=== PATIENT | male | born 2000 | race Hispanic/Latino ===

== ENCOUNTER 2022-05-27 23:19 | Inpatient (IN) | payer OTHER, SELFPAY ==
[~2022-05-27 23:19] MED LIST: Iopamidol-370 76% 500 ML 1 ML ONE
[2022-05-27] MEDS ORDERED: Morphine 4 MG/ML VIAL ONE (23:32)
[2022-05-27] MEDS ORDERED: Ondansetron PF 4 MG/2 ML Vial ONE (23:32)
[2022-05-27 23:34] LABS: #Lymphocytes 3.4 thou/uL (1.20-3.40); #Monocytes 0.7 thou/uL (0.11-0.59); #Neutrophils 10.5 thou/uL (1.40-6.50); %Basophils 0.3 % (0.0-1.0); %Eosinophils 0.3 % (0.0-10.0); %Lymphocytes 23.4 % (21.0-51.0); %Monocytes 4.6 % (0.0-10.0); %Neutrophils 71.3 % (42.0-75.0); Mean Corpuscular Hemoglobin 29.9 pg (27.0-31.0); Mean Corpuscular Volume 87.8 fl (78.0-98.0); Mean Platelet Volume 8.3 fL (7.4-10.4); Platelet Count 265 10x3/uL (130-400); RBC Distribution Width 11.4 % (11.5-14.5); Red Blood Cell (RBC) Count 5.36 mill/uL (4.70-6.10); White Blood Cell (WBC) Count 14.7 10x3/uL (4.8-10.8)
[2022-05-27 23:48] LABS: INR-International Normal Ratio 1.1; PTT 24.8 sec (22.9-36.1); Prothrombin Time 14.4 sec (12.0-14.7)
[2022-05-27 23:50] LABS: ALT (SGPT) 220 U/L (8-55); AST (SGOT) 285 U/L (5-34); Albumin 4.8 g/dL (3.5-5.0); Alkaline Phosphatase 57 U/L (40-110); Anion Gap 17 mmol/L (10-20); BUN (Urea Nitrogen) 13 mg/dL (8.9-20.6); Calc. Creatinine Clearance 0 mL/min (70-130); Calcium 9.3 mg/dL (7.8-10.44); Carbon Dioxide 21 mmol/L (22-29); Chloride 103 mmol/L (98-107); Estimated GFR 101; Globulin 2.6 g/dL (2.4-3.5); Glucose 194 mg/dL (70-105); Lipase 38 U/L (8-78); Potassium 3.2 mmol/L (3.5-5.1); Protein, Total 7.4 g/dL (6.0-8.3); Sodium 138 mmol/L (136-145)
[2022-05-27] MEDS ORDERED: Lidocaine 1% w/Epinephrine 1:100K 20 ML VIAL ONE (23:58)
[2022-05-27] MEDS ORDERED: Tranexamic Acid 1,000 MG in Sodium Chloride 0.9% 250 ML 250 ML IVPB SCH (23:59)
[2022-05-28] MEDS ORDERED: Fentanyl 100 MCG/2 ML VIAL ONE (00:04)
[2022-05-28] MEDS ORDERED: Ipratropium/Albuterol 3 ML NEB NEB PRN (00:34)
[2022-05-28] MEDS ORDERED: Morphine 2 MG/ML VIAL SLOW IVP PRN (00:34)
[2022-05-28] MEDS ORDERED: Ondansetron PF 4 MG/2 ML Vial IVP PRN (00:34)
[2022-05-28] MEDS ORDERED: hydrALAZINE 20 MG/ML VIAL SLOW IVP PRN (00:34)
[2022-05-28] MEDS ORDERED: Cyclobenzaprine 10 MG TAB PO PRN (00:46)
[2022-05-28] MEDS ORDERED: HYDROmorphone 0.5 MG/0.5 ML SYRINGE ONE (01:43)
[2022-05-28 02:06] LABS: Bilirubin Negative (Negative); Blood, Urine 2+ (Negative); Clarity Turbid (Clear); Glucose, Urine (Dipstick) 100 mg/dL (Negative); Ketone, Urine 40 mg/dL (Negative); Leukocyte Negative Leu/uL (Negative); Nitrite Negative (Negative); Protein, Urine (Dipstick) 70 mg/dL (Neg-Trace); Specific Gravity, Urine 1.036 (1.002-1.036); Urobilinogen Normal mg/dL (Less than 2); pH, Urine 7.5 (5.0-9.0)
[2022-05-28 02:09] LABS: Bacteria/HPF Rare-Few HPF (None Seen); RBC/HPF 0-3 HPF (0-3); Squamous Epithelial 0-3 HPF (0-3); WBC/HPF 0-3 HPF (0-3)
[2022-05-28] MEDS: Acetaminophen 500 MG TAB PO SCH ×4 (03:43→23:55)
[2022-05-28] MEDS: Sodium Chloride 0.9% 1,000 ML IV SCH ×3 (03:49→22:45)
[2022-05-28] MEDS: Potassium Chloride 20 MEQ in Premix Bag 1 BAG IVPB SCH ×2 (03:50→05:12)
[2022-05-28 04:09] VITALS: BMI 22.9
[2022-05-28 04:18] LABS: SARS-CoV-2 NAA Rapid Test Not Detected (NotDetected)
[2022-05-28 04:34] LABS: #Lymphocytes 1.1 thou/uL (1.20-3.40); #Monocytes 1.4 thou/uL (0.11-0.59); #Neutrophils 12.7 thou/uL (1.40-6.50); %Eosinophils 0.2 % (0.0-10.0); %Lymphocytes 7.4 % (21.0-51.0); %Monocytes 9.1 % (0.0-10.0); %Neutrophils 83.4 % (42.0-75.0); Hemoglobin 14.8 g/dL (14.0-18.0); Mean Corpuscular HGB CONC 34.4 g/dL (32.0-36.0); Mean Corpuscular Hemoglobin 30.4 pg (27.0-31.0); Mean Corpuscular Volume 88.2 fl (78.0-98.0); Mean Platelet Volume 8.3 fL (7.4-10.4); Platelet Count 187 10x3/uL (130-400); RBC Distribution Width 11.7 % (11.5-14.5); Red Blood Cell (RBC) Count 4.87 mill/uL (4.70-6.10); White Blood Cell (WBC) Count 15.3 10x3/uL (4.8-10.8)
[2022-05-28 04:40] LABS: Amphetamine Not Detected (NotDetected); Barbiturates Screen Not Detected (NotDetected); Benzodiazepine Screen Not Detected (NotDetected); Cocaine Metabolite Screen Not Detected (NotDetected); Methadone Not Detected (NotDetected); Methamphetamine Not Detected (NotDetected); Opiate Screen Detected (NotDetected); Oxycodone Screen Not Detected (NotDetected); Phencyclidine (PCP) Not Detected (NotDetected); THC/Cannabinoid Screen Not Detected (NotDetected); Tricyclic Screen Not Detected (NotDetected)
[2022-05-28 04:58] LABS: ALT (SGPT) 203 U/L (8-55); AST (SGOT) 227 U/L (5-34); Albumin 4.2 g/dL (3.5-5.0); Alkaline Phosphatase 48 U/L (40-110); Anion Gap 12 mmol/L (10-20); BUN (Urea Nitrogen) 12 mg/dL (8.9-20.6); Bilirubin, Direct 0.4 mg/dL (0.1-0.3); Bilirubin, Total 1.2 mg/dL (0.2-1.2); Calc. Creatinine Clearance 122 mL/min (70-130); Calcium 8.6 mg/dL (7.8-10.44); Carbon Dioxide 22 mmol/L (22-29); Chloride 107 mmol/L (98-107); Estimated GFR 125; Glucose 138 mg/dL (70-105); Potassium 3.4 mmol/L (3.5-5.1); Protein, Total 6.5 g/dL (6.0-8.3); Sodium 138 mmol/L (136-145)
[2022-05-28] MEDS: traMADol HCl 50 MG TAB PO SCH ×4 (05:10→22:55)
[2022-05-28] MEDS ORDERED: CEFAZOLIN 2 GM in Sodium Chloride 0.9% 100 ML IVPB SCH (07:45)
[2022-05-28] MEDS: Famotidine/PF 20 mg/2ml Vial SLOW IVP SCH ×2 (08:16→22:45)
[2022-05-28] MEDS: traMADol HCl 50 MG TAB PO PRN (08:25)
[2022-05-28] MEDS: Polyethylene Glycol 3350 17 GM Packet PO SCH (09:49)
[2022-05-28] MEDS: Senokot S 8.6-50 MG TAB PO SCH ×2 (09:50→20:04)
[2022-05-29 02:47] LABS: #Eosinphils 0.2 thou/uL (0.0-0.7); #Lymphocytes 1.2 thou/uL (1.20-3.40); #Monocytes 0.6 thou/uL (0.11-0.59); #Neutrophils 5.9 thou/uL (1.40-6.50); %Basophils 0.4 % (0.0-1.0); %Eosinophils 2.5 % (0.0-10.0); %Lymphocytes 15.1 % (21.0-51.0); %Monocytes 7.8 % (0.0-10.0); %Neutrophils 74.3 % (42.0-75.0); Mean Corpuscular HGB CONC 34.1 g/dL (32.0-36.0); Mean Corpuscular Hemoglobin 30.5 pg (27.0-31.0); Mean Corpuscular Volume 89.2 fl (78.0-98.0); Platelet Count 119 10x3/uL (130-400); RBC Distribution Width 11.4 % (11.5-14.5); Red Blood Cell (RBC) Count 4.28 mill/uL (4.70-6.10); White Blood Cell (WBC) Count 7.9 10x3/uL (4.8-10.8)
[2022-05-29 03:02] LABS: ALT (SGPT) 100 U/L (8-55); AST (SGOT) 61 U/L (5-34); Albumin 3.7 g/dL (3.5-5.0); Alkaline Phosphatase 42 U/L (40-110); Anion Gap 10 mmol/L (10-20); BUN (Urea Nitrogen) 7 mg/dL (8.9-20.6); Calc. Creatinine Clearance 143 mL/min (70-130); Calcium 8.3 mg/dL (7.8-10.44); Carbon Dioxide 22 mmol/L (22-29); Chloride 108 mmol/L (98-107); Estimated GFR 131; Glucose 100 mg/dL (70-105); Phosphorus 1.9 mg/dL (2.3-4.7); Potassium 3.6 mmol/L (3.5-5.1); Protein, Total 5.7 g/dL (6.0-8.3); Sodium 136 mmol/L (136-145)
[2022-05-29] MEDS: Sodium Chloride 0.9% 1,000 ML IV SCH (04:50)
[2022-05-29] MEDS ORDERED: CEFAZOLIN 2 GM in Sodium Chloride 0.9% 100 ML IVPB SCH (06:00)
[2022-05-29] MEDS: traMADol HCl 50 MG TAB PO SCH ×4 (06:44→23:38)
[2022-05-29] MEDS: Acetaminophen 500 MG TAB PO SCH ×4 (06:44→23:38)
[2022-05-29] MEDS ORDERED: Potassium Phosphate 30 MMOL in Sodium Chloride 0.9% 250 ML 250 ML IVPB SCH (07:45)
[2022-05-29] MEDS: Senokot S 8.6-50 MG TAB PO SCH ×2 (08:08→20:18)
[2022-05-29] MEDS: Polyethylene Glycol 3350 17 GM Packet PO SCH (08:08)
[2022-05-29] MEDS: Famotidine/PF 20 mg/2ml Vial SLOW IVP SCH ×2 (09:20→20:18)
[2022-05-29] MEDS ORDERED: HYDROmorphone 0.5 MG/0.5 ML SYRINGE ONE (14:03)
[2022-05-29] MEDS ORDERED: Dexmedetomidine 200 MCG/2 ML VIAL ONE (14:04)
[2022-05-29] MEDS ORDERED: Ketamine 50 MG/ML (10ML VIAL) ONE (14:04)
[2022-05-29] MEDS ORDERED: Bupivacaine PF 0.5% 30 ML VIAL ONE (14:06)
[2022-05-29] MEDS ORDERED: Sodium Chloride 0.9% 100 ML ONE (14:08)
[2022-05-29] MEDS ORDERED: CEFAZOLIN 2 GM VIAL ONE (14:08)
[2022-05-29] MEDS ORDERED: Fentanyl 100 MCG/2 ML VIAL ONE (14:12)
[2022-05-29] MEDS ORDERED: PROPOFOL 200 MG/20 ML VIAL ONE (14:18)
[2022-05-29] MEDS ORDERED: PHENYLEPHRINE-NS 100 MCG/ML 10 ML SYRINGE ONE (14:18)
[2022-05-29] MEDS ORDERED: Dexamethasone 20 MG/5 ML VIAL ONE (14:18)
[2022-05-29] MEDS ORDERED: Ketorolac Tromethamine 30 MG/ML VIAL ONE (14:18)
[2022-05-29] MEDS ORDERED: Lidocaine 1% PF 5 ML VIAL ONE (14:18)
[2022-05-29] MEDS ORDERED: Ondansetron PF 4 MG/2 ML Vial ONE (14:18)
[2022-05-29] MEDS ORDERED: HYDROmorphone 2 MG/ML VIAL SLOW IVP PRN (17:12)
[2022-05-29] MEDS ORDERED: Ondansetron HCl/PF 4 MG/2 ML Vial IVP PRN (17:12)
[2022-05-29] MEDS ORDERED: Promethazine HCl 25 MG/ML VIAL IM PRN (17:12)
[2022-05-29] MEDS: CEFAZOLIN 2 GM in Sodium Chloride 0.9% 100 ML IVPB SCH (21:11)
[2022-05-30 03:54] LABS: #Lymphocytes 0.7 thou/uL (1.20-3.40); #Monocytes 0.7 thou/uL (0.11-0.59); #Neutrophils 6.8 thou/uL (1.40-6.50); %Basophils 0.1 % (0.0-1.0); %Lymphocytes 8.4 % (21.0-51.0); %Monocytes 8.2 % (0.0-10.0); %Neutrophils 83.2 % (42.0-75.0); Hemoglobin 13.1 g/dL (14.0-18.0); Mean Corpuscular HGB CONC 35.7 g/dL (32.0-36.0); Mean Corpuscular Hemoglobin 31.2 pg (27.0-31.0); Mean Corpuscular Volume 87.2 fl (78.0-98.0); Mean Platelet Volume 8.1 fL (7.4-10.4); Platelet Count 140 10x3/uL (130-400); RBC Distribution Width 11.2 % (11.5-14.5); Red Blood Cell (RBC) Count 4.19 mill/uL (4.70-6.10); White Blood Cell (WBC) Count 8.1 10x3/uL (4.8-10.8)
[2022-05-30 04:28] LABS: Anion Gap 13 mmol/L (10-20); BUN (Urea Nitrogen) 10 mg/dL (8.9-20.6); Calc. Creatinine Clearance 126 mL/min (70-130); Calcium 8.5 mg/dL (7.8-10.44); Carbon Dioxide 21 mmol/L (22-29); Chloride 103 mmol/L (98-107); Estimated GFR 126; Glucose 140 mg/dL (70-105); Phosphorus 3.7 mg/dL (2.3-4.7); Potassium 4.4 mmol/L (3.5-5.1); Sodium 133 mmol/L (136-145)
[2022-05-30] MEDS: Acetaminophen 500 MG TAB PO SCH ×3 (05:23→18:11)
[2022-05-30] MEDS: CEFAZOLIN 2 GM in Sodium Chloride 0.9% 100 ML IVPB SCH (05:24)
[2022-05-30] MEDS: traMADol HCl 50 MG TAB PO SCH ×3 (05:24→18:11)
[2022-05-30] MEDS ORDERED: PHOS-NAK 1 PKT PACK PO SCH (08:00)
[2022-05-30] MEDS: Polyethylene Glycol 3350 17 GM Packet PO SCH (08:25)
[2022-05-30] MEDS: Famotidine/PF 20 mg/2ml Vial SLOW IVP SCH (08:25)
[2022-05-30] MEDS: Senokot S 8.6-50 MG TAB PO SCH ×2 (08:25→20:38)
[2022-05-30] MEDS: Gabapentin 300 MG CAP PO SCH ×3 (08:25→20:39)
[2022-05-30] MEDS: Famotidine 20 MG TAB PO SCH ×2 (09:23→20:39)
[2022-05-30] MEDS: Ibuprofen 200 MG TAB PO SCH ×2 (13:19→21:40)
[2022-05-30] MEDS: traMADol HCl 50 MG TAB PO PRN (13:20)
[2022-05-31] MEDS: traMADol HCl 50 MG TAB PO SCH ×4 (00:04→18:21)
[2022-05-31] MEDS: Acetaminophen 500 MG TAB PO SCH ×4 (00:04→18:20)
[2022-05-31 04:57] LABS: #Eosinphils 0.2 thou/uL (0.0-0.7); #Lymphocytes 1.6 thou/uL (1.20-3.40); #Monocytes 0.6 thou/uL (0.11-0.59); %Basophils 0.8 % (0.0-1.0); %Lymphocytes 29.1 % (21.0-51.0); %Monocytes 10.1 % (0.0-10.0); %Neutrophils 55.9 % (42.0-75.0); Hemoglobin 12.3 g/dL (14.0-18.0); Mean Corpuscular HGB CONC 34.6 g/dL (32.0-36.0); Mean Corpuscular Hemoglobin 30.2 pg (27.0-31.0); Mean Corpuscular Volume 87.4 fl (78.0-98.0); Mean Platelet Volume 8.3 fL (7.4-10.4); Platelet Count 131 10x3/uL (130-400); RBC Distribution Width 11.3 % (11.5-14.5); Red Blood Cell (RBC) Count 4.07 mill/uL (4.70-6.10); White Blood Cell (WBC) Count 5.4 10x3/uL (4.8-10.8)
[2022-05-31 05:34] LABS: Anion Gap 11 mmol/L (10-20); BUN (Urea Nitrogen) 8 mg/dL (8.9-20.6); Calc. Creatinine Clearance 131 mL/min (70-130); Calcium 8.7 mg/dL (7.8-10.44); Carbon Dioxide 27 mmol/L (22-29); Chloride 104 mmol/L (98-107); Estimated GFR 128; Glucose 95 mg/dL (70-105); Magnesium 2.1 mg/dL (1.6-2.6); Phosphorus 1.9 mg/dL (2.3-4.7); Potassium 3.9 mmol/L (3.5-5.1); Sodium 138 mmol/L (136-145)
[2022-05-31] MEDS: Ibuprofen 200 MG TAB PO SCH ×2 (05:49→15:34)
[2022-05-31] MEDS ORDERED: Sodium Phosphate 30 MMOL in Sodium Chloride 0.9% 250 ML 250 ML IVPB SCH (08:00)
[2022-05-31] MEDS: Famotidine 20 MG TAB PO SCH (08:22)
[2022-05-31] MEDS: Gabapentin 300 MG CAP PO SCH ×2 (08:22→15:34)
[2022-05-31] MEDS: traMADol HCl 50 MG TAB PO PRN (08:24)
[2022-05-31] MEDS: Senokot S 8.6-50 MG TAB PO SCH (08:25)
[2022-05-31] MEDS: Polyethylene Glycol 3350 17 GM Packet PO SCH (08:25)
[2022-05-31 20:11] VITALS: BP 117/68; TEMP 98.2
== END 2022-05-31 20:15 | disposition home or self-care (01) | DRG 959 ==
LOC: EDBD 23:19 → ERS 23:19 → ERHOLD 05-28 00:47 → IMCU/EMU 05-28 03:28 → SURG A 05-30 15:01
PROVIDERS: ADMIT Orthopaedic Surgery; ATTEND Surgery
PROC: 30233N1 Transfusion of Nonautologous Red Blood Cells into Peripheral Vein, Percutaneous Approach (ICD-10-PCS; 2022-05-27)
PROC: 0QSL04Z Reposition Right Tarsal with Internal Fixation Device, Open Approach (ICD-10-PCS; principal; 2022-05-29)
PROC: 0QSG04Z Reposition Right Tibia with Internal Fixation Device, Open Approach (ICD-10-PCS; 2022-05-29)
PROC: 0QSH04Z Reposition Left Tibia with Internal Fixation Device, Open Approach (ICD-10-PCS; 2022-05-29)
DX: S82.52XA Displaced fracture of medial malleolus of left tibia, initial encounter for closed fracture (principal); S32.421A Displaced fracture of posterior wall of right acetabulum, initial encounter for closed fracture; S27.0XXA Traumatic pneumothorax, initial encounter; S37.812A Contusion of adrenal gland, initial encounter; S27.321A Contusion of lung, unilateral, initial encounter; S82.51XA Displaced fracture of medial malleolus of right tibia, initial encounter for closed fracture; S92.111A Displaced fracture of neck of right talus, initial encounter for closed fracture; N28.89 Other specified disorders of kidney and ureter; S71.111A Laceration without foreign body, right thigh, initial encounter; S92.001A Unspecified fracture of right calcaneus, initial encounter for closed fracture; I95.9 Hypotension, unspecified; E83.39 Other disorders of phosphorus metabolism; R74.01 Elevation of levels of liver transaminase levels; V27.09XA Other motorcycle driver injured in collision with fixed or stationary object in nontraffic accident, initial encounter; Z20.822 Contact with and (suspected) exposure to COVID-19
CPT/HCPCS: 36415; 36430; 70450; 70486; 71045; 71260; 72125; 72170; 74177; 80048; 80053; 80076; 80306; 81003; 81015; 83690; 83735; 84100; 84484; 85025; 85610; 85730; 86850; 86900; 86901; 93005; C1713; G0390; J1100; J1170; J1650; J1885; J2270; J2272; J2405; J2704; J3010; J3480; J3490; J7050; P9016; Q9967; S0020; S0028; U0002